=== PATIENT | male | born 1995 | race Caucasian/White ===

== ENCOUNTER → 2020-04-06 | Outpatient (CLI) | payer BC ==
[~2020-04-06] MED LIST: CARAFATE1 G1 PO; ESOMEPRAZOLE MA40 M1 PO; HYDROCODONE BIT1 T11 PO; KEFLEX500 MG PO; MOTRIN600 MG PO; MOTRIN800 MG PO; Motrin,Rufen800 MG PO; NKHM; OMEPRAZOLE20 M1 PO; PREDNISONE50 MG PO; ZANTAC 150150 MG PO; ZOFRAN4 MG PO
== END ==
LOC: COVID19 00:32
DX: Z20.828 Contact with and (suspected) exposure to other viral communicable diseases (principal)

== ENCOUNTER → 2020-09-06 | Outpatient (CLI) | payer BC | END | disposition home or self-care (01) | LOC: COVID19 13:04 | PROVIDERS: ATTEND Internal Medicine | DX: Z20.828 Contact with and (suspected) exposure to other viral communicable diseases (principal) ==

== ENCOUNTER → 2021-08-29 | Outpatient (CLI) | payer BC | END | disposition home or self-care (01) | LOC: COVID19 17:08 | PROVIDERS: ATTEND Internal Medicine | DX: Z11.52 Encounter for screening for COVID-19 (principal) ==

== ENCOUNTER 2024-05-25 11:22 | Emergency (ER) | payer OTHER ==
[~2024-05-25] VITALS: Ht 180.3 cm; Wt 95.3 kg
[2024-05-25] MEDS ORDERED: CYCLOBENZAPRINE10 MG PO (12:24)
[2024-05-25] MEDS ORDERED: MELOXICAM15 MG PO (12:24)
== END 2024-05-25 12:57 | disposition home or self-care (01) ==
LOC: ED 11:22
DX: M25.562 Pain in left knee (principal); K21.9 Gastro-esophageal reflux disease without esophagitis; Z98.890 Other specified postprocedural states